=== PATIENT | male | born 1980 | race Caucasian/White ===

== ENCOUNTER 2022-09-07 21:23 | Emergency (ER) | payer MEDICAID ==
[~2022-09-07] VITALS: Ht 182.9 cm; Wt 108.9 kg
[2022-09-07 21:50] VITALS: BP 207/124
--- NOTE | 2022-09-07 21:53 | NUR ---
TO LOBBY A/W BED VIA W/C
[2022-09-07] MEDS ORDERED: KETOROLAC 30 MG/ML VIAL IM ONE (23:40)
[2022-09-07] MEDS ORDERED: NAPR-54 PO (23:41)
[2022-09-07] MEDS ORDERED: ACET-8905 PO (23:41)
--- NOTE | 2022-09-08 00:10 | NUR ---
DR GAYTAN AWARE OF PATIENTS B/P. PT IS CLEARED TO BE DC. PT STATES HAS HX OF HTN AND FORGOT TO TAKE HIS MEDICATION THIS EVENING. PT DC WITH THE UNDERSTANDING OF THE IMPORTANCE OF TAKING HIS MEDICATION MALIK.
--- NOTE | 2022-09-08 00:14 | NUR ---
AIRCAST ANKLE STIRRUP APPLIED TO R ANKLE. PATIENT CMS CHECKED BEFORE/AFTER. PATIENT WAS GIVEN SPLINTS, DEMONSTRATED PROPOER USE, AND DISPLAYED KNOWLEDGE OF USE.
[2022-09-08 00:19] VITALS: BP 190/128
--- NOTE | 2022-09-08 00:19 | NUR ---
Patient discharged with v/s stable. Written and verbal after care instructions given and explained. Patient alert, oriented and verbalized understanding of instructions. Ambulatory with steady gait. All questions addressed prior to discharge. ID band removed. Patient advised to follow up with PMD. Rx of HYDROCODONE /ACETAMINOPHEN NAPROXEN given.
== END 2022-09-08 00:14 | disposition home or self-care (01) ==
LOC: MED 21:23
DX: S93.401A Sprain of unspecified ligament of right ankle, initial encounter (principal); Z79.899 Other long term (current) drug therapy; W22.8XXA Striking against or struck by other objects, initial encounter; Y93.89 Activity, other specified; Y92.89 Other specified places as the place of occurrence of the external cause; Y99.8 Other external cause status
CPT/HCPCS: 73610; 96372; 99283; J1885; 29515

== ENCOUNTER 2023-10-21 13:41 | Emergency (ER) | payer MEDICAID ==
[~2023-10-21] VITALS: Ht 167.6 cm; Wt 108.9 kg
[~2023-10-21 13:41] MED LIST: ACET-8905 PO; NAPR-54 PO
[2023-10-21 14:10] VITALS: BP 158/107; PULSE 82; RESP 16; TEMP 98.7; O2SAT 95
[2023-10-21] MEDS ORDERED: LIDOCAINE MPF 1% 10 MG/ML VIAL INJ ONE (17:10)
[2023-10-21] MEDS ORDERED: KETOROLAC 60 MG/2 ML VIAL IM ONE (17:10)
[2023-10-21 17:24] VITALS: O2SAT 95
[2023-10-21] MEDS ORDERED: BACITRACIN OINT 500 UNITS/GM PKT TP ONE ×2 (17:27→17:30)
[2023-10-21] MEDS ORDERED: IBUP-2213 PO (17:34)
== END 2023-10-21 18:13 | disposition home or self-care (01) ==
LOC: MED 13:41
DX: S71.112A Laceration without foreign body, left thigh, initial encounter (principal); Z79.899 Other long term (current) drug therapy; Z79.1 Long term (current) use of non-steroidal anti-inflammatories (NSAID); X58.XXXA Exposure to other specified factors, initial encounter; Y92.89 Other specified places as the place of occurrence of the external cause; Y93.89 Activity, other specified; Y99.8 Other external cause status
CPT/HCPCS: 12002; 90471; 90715; 96372; 99284; J1885; J2001

== ENCOUNTER 2023-10-29 10:22 | Emergency (ER) | payer MEDICAID ==
[~2023-10-29] VITALS: Ht 167.6 cm; Wt 108.9 kg
[~2023-10-29 10:22] MED LIST changes: +IBUP-2213 PO
[2023-10-29 10:43] VITALS: BP 144/99; PULSE 74; RESP 16; TEMP 97.1; O2SAT 97
== END 2023-10-29 11:31 | disposition home or self-care (01) ==
LOC: MED 10:22
DX: S71.112D Laceration without foreign body, left thigh, subsequent encounter (principal); Z48.02 Encounter for removal of sutures; R03.0 Elevated blood-pressure reading, without diagnosis of hypertension; Z79.899 Other long term (current) drug therapy; Z79.1 Long term (current) use of non-steroidal anti-inflammatories (NSAID); W45.8XXD Other foreign body or object entering through skin, subsequent encounter
CPT/HCPCS: 99281

== ENCOUNTER 2023-11-08 18:18 | Emergency (ER) | payer MEDICAID, OTHER ==
[~2023-11-08] VITALS: Ht 167.6 cm; Wt 111.1 kg
[2023-11-08 18:26] VITALS: BP 149/110; PULSE 81; RESP 16; TEMP 98.2; O2SAT 98
[2023-11-08] MEDS ORDERED: LIDOCAINE MPF 1% 5 ML ONE (20:07)
[2023-11-08] MEDS ORDERED: IBUP-2213 PO (20:31)
[2023-11-08] MEDS ORDERED: BACI-418 TP (20:31)
[2023-11-08] MEDS ORDERED: CEPH500C16 PO (20:31)
[2023-11-08] MEDS: IBUPROFEN 600 MG TAB PO SCH (20:32)
[2023-11-08] MEDS: LIDOCAINE MPF 1% 10 MG/ML VIAL INJ ONE (20:57)
[2023-11-08 21:04] VITALS: BP 149/98; PULSE 78; RESP 17; TEMP 98.2; O2SAT 97
== END 2023-11-08 21:05 | disposition home or self-care (01) ==
LOC: MED 18:18
DX: S71.112A Laceration without foreign body, left thigh, initial encounter (principal); I10 Essential (primary) hypertension; Z79.899 Other long term (current) drug therapy; Z79.1 Long term (current) use of non-steroidal anti-inflammatories (NSAID); Z79.2 Long term (current) use of antibiotics; X58.XXXA Exposure to other specified factors, initial encounter; Y92.89 Other specified places as the place of occurrence of the external cause; Y93.89 Activity, other specified; Y99.8 Other external cause status
CPT/HCPCS: 12001; 99284; J2001

== ENCOUNTER 2023-11-10 16:21 | Emergency (ER) | payer OTHER ==
[~2023-11-10] VITALS: Ht 165.1 cm; Wt 111.1 kg
[~2023-11-10 16:21] MED LIST changes: +BACI-418 TP; +CEPH500C16 PO
[2023-11-10 16:52] VITALS: BP 143/10; PULSE 7; RESP 16; TEMP 98; O2SAT 99
[2023-11-10 17:43] VITALS: BP 143/10; PULSE 7; RESP 16; TEMP 98; O2SAT 99
== END 2023-11-10 17:45 | disposition home or self-care (01) ==
LOC: MED 16:21
DX: S71.112D Laceration without foreign body, left thigh, subsequent encounter (principal); Z79.899 Other long term (current) drug therapy; X58.XXXD Exposure to other specified factors, subsequent encounter
CPT/HCPCS: 99282

== ENCOUNTER 2023-11-19 17:30 | Emergency (ER) | payer OTHER ==
[~2023-11-19] VITALS: Ht 165.1 cm; Wt 108.9 kg
[2023-11-19 17:43] VITALS: BP 145/90; PULSE 71; RESP 18; TEMP 98.2; O2SAT 98
[2023-11-19] MEDS: TRANEXAMIC ACID 1,000 MG/10 ML VIAL MC ONE (18:39)
== END 2023-11-19 18:41 | disposition home or self-care (01) ==
LOC: MED 17:30
DX: T81.33XA Disruption of traumatic injury wound repair, initial encounter (principal); Z79.899 Other long term (current) drug therapy
CPT/HCPCS: 99283

== ENCOUNTER 2024-04-17 18:07 | Emergency (ER) | payer OTHER ==
[~2024-04-17] VITALS: Ht 165.1 cm; Wt 103.5 kg
[~2024-04-17 18:07] MED LIST changes: +CEPH-588 PO; +NAPR-337 PO; -NAPR-54 PO
[2024-04-17 18:42] VITALS: BP 116/79; PULSE 81; RESP 18; TEMP 98.4; O2SAT 99
[2024-04-17] MEDS: KETOROLAC 30 MG/ML VIAL IM ONE (19:50)
[2024-04-17] MEDS: ACETAMINOPHEN EXTRA STRENGTH 500 MG TAB PO ONE (19:51)
[2024-04-17] MEDS ORDERED: CYCL-711 PO (20:29)
[2024-04-17] MEDS ORDERED: IBUP-2213 PO (20:29)
== END 2024-04-17 20:32 | disposition home or self-care (01) ==
LOC: MED 18:07
DX: M79.604 Pain in right leg (principal); I10 Essential (primary) hypertension; Z79.899 Other long term (current) drug therapy
CPT/HCPCS: 82948; 96372; 99283; J1885